=== PATIENT | female | born 2000 | race Caucasian/White ===

== ENCOUNTER 2018-06-16 14:17 | Emergency (ER) | END 2018-06-16 14:54 | disposition home or self-care (01) ==

== ENCOUNTER 2018-12-17 13:46 | Emergency (ER) | payer BC ==
[~2018-12-17] VITALS: Wt 60.0 kg
[~2018-12-17 13:46] MED LIST: FLUC150T PO; NYST15CR36 TOP
[2018-12-17 13:53] VITALS: BP 130/88; PULSE 88; RESP 18
[2018-12-17] MEDS ORDERED: LIDOCAINE 1% (MDV) 10 ML INJ INJ STA (15:23)
--- NOTE | 2018-12-17 15:31 | ERD ---
ER Documentation Chief Complaint Chief Complaint RIGHT EAR PAIN FROM EMBEDDED EAR RING . MILD REDNESS HPI This is a 18-year-old female with a nonsignificant past medical history presents ED with right earlobe pain since this morning. Patient states that she woke up with redness and swelling along right earlobe where the earring is in place. Patient states that the hearing has become embedded in her ear overnight. Denies fever, chills, tingling, numbness, lack sensation in all other symptoms. Tetanus up-to-date ROS All systems reviewed and are negative except as per history of present illness. Medications Home Meds Active Scripts Nystatin-Triamcinolone* (Nystatin-Triamcinolone* Cream) 15 Gm Cream.gm., 1 APPLIC TOP BID for 7 Days, TUB Prov:ADRIANNA SALGADO MD 10/13/18 Fluconazole* (Diflucan*) 150 Mg Tablet, 150 MG PO ONCE, #1 TAB Prov:ADRIANNA SALGADO MD 10/13/18 Allergies Allergies: Coded Allergies: No Known Drug Allergy (Verified Allergy, Mild, 03/15/11) PMhx/Soc History of Surgery: Yes (MYRINGOTOMY) Anesthesia Reaction: No Hx Neurological Disorder: No Hx Respiratory Disorders: No Hx Cardiac Disorders: No Hx Psychiatric Problems: No Hx Miscellaneous Medical Probl: No Hx Alcohol Use: No Hx Substance Use: No Hx Tobacco Use: No Smoking Status: Never smoker Physical Exam Vitals Vital Signs Date Temp Pulse Resp B/P (MAP) Pulse Ox O2 O2 Flow FiO2 Time Delivery Rate 12/17/18 98.1 88 18 130/88 99 13:53 (102) Physical Exam Const: No acute distress Head: Atraumatic Eyes: Normal Conjunctiva ENT: Normal External Ears, Nose and Mouth. Neck: Full range of motion. No meningismus. Resp: Clear to auscultation bilaterally Cardio: Regular rate and rhythm, no murmurs Skin: Partial butterfly hearing has become embedded in patient's right earlobe there is increased redness and swelling and moderate tenderness to palpation along this area of the earlobe Ext: No cyanosis, or edema Neur: Awake and alert Psych: Normal Mood and Affect Results 24 hrs Current Medications Medications Dose Sig/Agusto Start Time Status Last (Trade) Ordered Route PRN Stop Time Admin Dose Reason Admin Lidocaine 10 ml ONCE STAT 12/17/18 DC HCl INJ 15:23 (Lidocaine 12/17/18 15:24 1% (Mdv) 10 ml) Procedures/MDM ER COURSE: The patient was stable throughout ED course. I kept the patient and/or family informed of laboratory and diagnostic imaging results throughout the emergency room course. The patient was promptly evaluated and a treatment plan was devised based on H&P and other data. This plan was discussed with the patient who agreed and had no further questions or concerns prior to discharge. MEDICAL DECISION making this is a 18-year-old female presents ED with foreign body in right earlobe times 1 day. Patient slept patient awoke from her sleep this morning with her earring embedded in her right earlobe. I used lidocaine 1% to anesthetize the area and was unable to use forceps and hemostat to remove the earring foreign body from patient's right earlobe. At this time there is no ENT emergency. No evidence of sepsis, cellulitis, abscess, deep tracking infection. Vitals are stable patient can be managed close outpatient follow-up. Advised patient follow-up with primary care in the next 48 hours. Return to ED with any worsening symptoms DISPOSITION PLAN: We discussed follow up with the patient's primary care doctor within 24 to 48 hours. Patient counseled regarding my diagnostic impression and care plan. Prior to discharge all questions answered. Pt agrees with treatment plan and understands strict return precautions. Precautionary instructions provided including instructions to return to the ER if not improving or for any worsening or changing symptoms or concerns. SPECIALIST FOLLOW UP RECOMMENDED: None Patient has been advised to follow up with primary care in 1-2 days. Disclaimer: Inadvertent spelling and grammatical errors are likely due to EHR/dictation software use and do not reflect on the overall quality of patient care. Also, please note that the electronic time recorded on this note does not necessarily reflect the actual time of the patient encounter. Departure Diagnosis: Primary Impression: Retained foreign body Condition: Stable Patient Instructions: Foreign Body, Soft Tissue (Removed) Referrals: COMM[facility]ITY CLIN[facility] YOU HAVE RECEIVED A MEDICAL SCREENING EXAM AND THE RESULTS INDICATE THAT YOU DO NOT HAVE A CONDITION THAT REQUIRES URGENT TREATMENT IN THE EMERGENCY DEPARTMENT. FURTHER EVALUATION AND TREATMENT OF YOUR CONDITION CAN WAIT UNTIL YOU ARE SEEN IN YOUR DOCTORS OFFICE WITHIN THE NEXT 1-2 DAYS. IT IS YOUR RESPONSIBILITY TO MAKE AN APPOINTMENT FOR FOLOW-UP CARE. IF YOU HAVE A PRIMARY DOCTOR --you should call your primary doctor and schedule an appointment IF YOU DO NOT HAVE A PRIMARY DOCTOR YOU CAN CALL OUR PHYSICIAN REFERRAL HOTLINE AT IF YOU CAN NOT AFFORD TO SEE A PHYSICIAN YOU CAN CHOSE FROM THE FOLLOWING [facility] CL[facility]ICS [facility] [address] [facility] [address] [facility] [address] [facility] [address] [facility] [address] [facility]. [facility] [address] Additional Instructions: Patient advised to return to the ED immediately for new or worsening symptoms. Patient advised to follow up with primary care provider in the next 24-48 hours. Patient verbalized understanding and agrees with treatment plan and course of action. If patient has no primary care they may follow up with one of the [facility] linics listed on the following page or one of the options listed below SHANDA + [facility] [address] [place] [id number] or [facility] [address] [place] [address] or [facility] [address] [place] [address] WADE TURNER PA-C Dec 17, 2018 15:31
== END 2018-12-17 15:43 | disposition home or self-care (01) ==
LOC: FTE 13:46
DX: Z18.89 Other specified retained foreign body fragments (principal)
CPT/HCPCS: 99282

== ENCOUNTER 2019-04-29 08:48 | Emergency (ER) | payer BC ==
[~2019-04-29] VITALS: Ht 162.6 cm; Wt 59.0 kg
[2019-04-29 08:53] VITALS: BP 131/83; PULSE 109; RESP 20; Ht 162.6 cm; Wt 59.0 kg
== END 2019-04-29 10:45 | disposition left against medical advice (07) ==
LOC: E/R 08:48
DX: Z53.21 Procedure and treatment not carried out due to patient leaving prior to being seen by health care provider (principal)